=== PATIENT | male | born 1990 | race Caucasian/White ===

== ENCOUNTER 2016-07-08 04:40 | Emergency (ER) | payer SELFPAY ==
[~2016-07-08] VITALS: Ht 154.9 cm; Wt 61.5 kg
[2016-07-08 05:03] VITALS: Ht 154.9 cm; Wt 61.5 kg
--- NOTE | 2016-07-08 06:54 | RADRPT ---
PROCEDURE: CHEST - 1 VIEW CLINICAL INDICATION: 26-year-old male with cough. TECHNIQUE: A single frontal AP view of the chest was performed portably. The images were reviewed on a PACS workstation. COMPARISON: None. FINDINGS: The cardiomediastinal silhouette has a normal appearance. There is no evidence for an infiltrate. T he pulmonary vascularity is within normal limits. There is no evidence for pneumothorax or pneumomed iastinum. The osseous structures are intact. IMPRESSION: No evidence for active cardiopulmonary disease. .Napoleon Segundo MD, MD Date Time Electronically viewed and signed by .Napoleon Segundo MD, MD on 07/08/2016 06:54 .M/
[2016-07-08] MEDS ORDERED: NAPR-260 PO (07:18)
[2016-07-08] MEDS ORDERED: AMOX1TAB10 PO (07:18)
--- NOTE | 2016-07-08 10:03 | ERD ---
ER Documentation Chief Complaint Date/Time DATE: 07/08/16 TIME: 10:01 Chief Complaint body aches HPI 26-year-old male comes in with multiple complaints including body pain from his hips down to his legs as well as a cough and redness to both of his hands. 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 Patient has had a cough for the past 2 months now, recently developing some congestion as well. He has not had any fevers or chills. No trauma to the lower extremities. No edema. ROS All systems reviewed and are negative except as per history of present illness. Medications Home Meds Active Scripts Naproxen* (Naprosyn*) 500 Mg Tablet, 500 MG PO BID Y for PAIN AND/OR INFLAMMATION, #30 TAB Prov:CAYDEN DAVIS PA-C 07/08/16 Amoxicillin/Potassium Clav (Amox-Clav 875-125 mg Tablet) 875-125 mg Tab, 1 TAB PO BID for 7 Days, #14 TAB Prov:CAYDEN DAVIS PA-C 07/08/16 Allergies Allergies: Coded Allergies: No Known Allergy (Unverified , 07/08/16) PMhx/Soc Medical and Surgical Hx: pt denies Medical Hx, pt denies Surgical Hx Hx Alcohol Use: Yes Hx Substance Use: No Hx Tobacco Use: Yes Smoking Status: Current every day smoker Physical Exam Vitals Vital Signs Date Time Temp Pulse Resp B/P Pulse Ox O2 Delivery O2 Flow Rate FiO2 07/08/16 05:03 98.3 96 18 136/88 98 Physical Exam General: Well-developed, well-nourished. The patient appears in no acute distress. HEENT: Head is normocephalic, atraumatic. No scleral icterus. Pupils are equal , round, and reactive. Oral mucous membranes are moist. No pharyngeal erythema. Neck: Supple. Nontender. Lungs: Clear to auscultation. Normal air movement. Heart: Regular rate and rhythm. S1 and S2 are normal. No murmurs, gallops, or rubs. Abdomen: Soft, nontender, nondistended. Bowel sounds are normoactive. Extremities: No clubbing or cyanosis. Normal pulses. Moving extremities x 4. No weakness. No edema, atraumatic. Neurologic: Alert and oriented 3. No focal deficits. Skin: Normal turgor. No rash or lesions. Procedures/MDM Chest X-ray 1V Interpreted by me as well as radiologist: Soft Tissue: No acute abnormalities Bones: No acute abnormalities Mediastinum/Cardiac Silhouette/Lungs: No acute abnormalities 25 mg in with cough for 2 months, he also comes in with multiple joint pains in his hips, knees and his ankles. His lower extremity presentation is unremarkable, no signs of infection, edema. I did a chest x-ray that was normal patient but eloped from the emergency department. Left without AVS. Differentials include URI, bronchitis, pneumonia, CHF. Departure Diagnosis: Primary Impression: Cough Additional Impression: Arthralgia Condition: Good Patient Instructions: Cough, Chronic, Uncertain Cause, (Adult), Myalgias Additional Instructions: Call your primary care doctor TOMORROW for an appointment during the next 1-2 days.See the doctor sooner or return here if your condition worsens before your appointment time. CAYDEN DAVIS PA-C Jul 08, 2016 10:03
== END 2016-07-08 07:53 | disposition home or self-care (01) ==
LOC: FTE 04:40
DX: R05 Cough (principal); M25.552 Pain in left hip; M25.551 Pain in right hip; M25.561 Pain in right knee; M25.562 Pain in left knee; M25.571 Pain in right ankle and joints of right foot; M25.572 Pain in left ankle and joints of left foot; F17.210 Nicotine dependence, cigarettes, uncomplicated
CPT/HCPCS: 71010